=== PATIENT | male | born 1955 | race Caucasian/White ===

== ENCOUNTER → 2016-12-17 | Outpatient (CLI) | payer BC ==
--- NOTE | 2016-12-17 11:15 | NM ---
EXAMINATION: Nuclear medicine myocardial perfusion study with exercise stress test. HISTORY: Chest pain. PROCEDURE: Patient exercised according to Feliciano protocol for 10 minutes and 16 seconds and achieved maximal hea rt rate of 146 beats per minute. Adequate exercise. Following intravenous administration of 9.9 and 31.0 mCi of technetium 99m sestamibi, stress and r est SPECT images including gating imaging was performed. FINDINGS: Stress and rest myocardial SPECT images demonstrates mildly decreased perfusion along the inferior w all, fixed. Review of gated images demonstrates normal wall motion, contractility and wall thickening. The left ventricular ejection fraction is 59 %. The left ventricular chamber size is normal. IMPRESSION: 1. No evidence of myocardial ischemia. 2. Normal ventricular chamber size and function with ejection fraction of 59 %.
--- NOTE | 2016-12-17 15:29 | PCM.PRNOTE ---
- Free Text/Narrative Note: Procedure: Cardiolite exercise stress test Resting blood pressure 122/82, pulse 68 Patient exercised per Feliciano protocol 10 minutes and 16 seconds and achieved a maximum heart rate of 146 beats per minute which was 91% of age-predicted maximum heart rate. Mets: 12.8 double product 57097 Resting EKG revealed normal sinus rhythm. With exertion, no significant ST-T changes were noted. Test stopped at target heart rate. No complaints of chest pain during exercise or recovery with an unremarkable recovery phase. Impression: #1. Negative stress test for ischemic ST-T changes. #2. Good exercise tolerance. #3. Cardiolite portion of test pending
== END ==
LOC: MW.NM 06:13
PROVIDERS: ATTEND Emergency Medicine
DX: R07.9 Chest pain, unspecified (principal)
CPT/HCPCS: 78452; 78452-26; 93017; A9500

== ENCOUNTER 2019-03-26 20:36 | Emergency (ER) | payer BC ==
[2019-03-26] MEDS ORDERED: Sodium Chloride 0.9% 1,000 ML IV ONE (20:37)
[2019-03-26] MEDS ORDERED: Sodium Chloride 0.9% 2.5 ML Syringe FLUSH PRN (20:37)
[2019-03-26] MEDS ORDERED: Sodium Chloride 0.9% 10 ML Syringe FLUSH PRN (20:37)
[2019-03-26] MEDS ORDERED: Nitroglycerin 2% Oint 1 GM UD Packet TOP ONE (20:43)
--- NOTE | 2019-03-26 20:47 | EDM.PDOC ---
ED HPI GENERAL MEDICAL PROBLEM - General Chief Complaint: Chest Pain Stated Complaint: CHEST PAIN Time Seen by Provider: 03/26/19 20:43 Source of Information: Reports: Patient History Limitations: Reports: No Limitations - History of Present Illness INITIAL COMMENTS - FREE TEXT/NARRATIVE: HISTORY AND PHYSICAL: History of present illness: Patient is a 63-year-old male presents to the ED with complaint of chest pain. He reports pain started about 2pm this afternoon. He has taken 6 aspirin today, pain is currently a 2/10. He states it comes and goes in severity but always there, pain radiates up to his shoulders and has felt it in his jaw. He denies associated SOB, nausea, diaphoresis. He states he did have a coughing fit today , denies fevers, chills, vomiting, diarrhea, abdominal pain. Past medical history significant for hypertension and hyperlipidemia. Review of systems: As per history of present illness and below otherwise all systems reviewed and negative. Past medical history: As per history of present illness and as reviewed below otherwise noncontributory. Surgical history: As per history of present illness and as reviewed below otherwise noncontributory. Social history: No reported history of drug or alcohol abuse. Family history: As per history of present illness and as reviewed below otherwise noncontributory. Physical exam: General: Patient sitting comfortably in no acute distress and nontoxic appearing HEENT: Atraumatic, normocephalic, pupils reactive, negative for conjunctival pallor or scleral icterus, mucous membranes moist, throat clear, neck supple, nontender, trachea midline. No meningeal signs. Lungs: Clear to auscultation, breath sounds equal bilaterally, chest nontender. Heart: S1S2, regular, negative for clicks, rubs, or overt murmur. Abdomen: Soft, nondistended, nontender. Negative for masses or hepatosplenomegaly. Negative for costovertebral tenderness. No rigidity, rebound , guarding. Pelvis: Stable nontender. Genitourinary: Deferred. Rectal: Deferred. Extremities: Atraumatic, negative for cords or calf pain. Neurovascular unremarkable. Neuro: Awake, alert, oriented. Cranial nerves II through XII unremarkable. Cerebellum unremarkable. Motor and sensory unremarkable throughout. Exam nonfocal. Notes: Patient has not taken sildenafil in 48 hours. Diagnostics: CBC, CMP, troponin, PT/INR, EKG, CXR Therapeutics: 1L NS IV 1/2 nitro paste Prescriptions: Impression: Unstable angina Plan: Discussed with Dr. Chris, [facility] ED, patient will be transferred via ground ambulance. Definitive disposition and diagnosis as appropriate pending reevaluation and review of above. Middle Chest Pain Score (Numeric/FACES): 10 - Related Data Allergies Allergy/AdvReac Type Severity Reaction Status Date / Time atorvastatin calcium Allergy Other Verified 03/26/19 20:47 [From Lipitor] ezetimibe [From Zetia] Allergy Other Verified 03/26/19 20:47 Home Meds: Home Meds Desvenlafaxine Succinate [Desvenlafaxine Succinate ER] 100 mg PO DAILY 03/26/19 [History] Losartan Potassium 100 mg PO DAILY 03/26/19 [History] Pravastatin Sodium 10 mg PO DAILY 03/26/19 [History] Sildenafil Citrate 20 mg PO ASDIRECTED 03/26/19 [History] ED ROS GENERAL - Review of Systems Review Of Systems: ROS reveals no pertinent complaints other than HPI. ED EXAM, GENERAL - Physical Exam Exam: See Below (see dictation) Course - Vital Signs Last Recorded V/S: Last Vital Signs Temp 96.3 F 03/26/19 20:38 Pulse 71 03/26/19 20:38 Resp BP 182/102 H 03/26/19 20:38 Pulse Ox 96 03/26/19 20:38 - Orders/Labs/Meds Orders: Active Orders 24 hr Category Date Time Status Cardiac Monitoring [RC] . DIRECTED Care 03/26/19 20:37 Active EKG Documentation Completion [RC] STAT Care 03/26/19 20:38 Active Sodium Chloride 0.9% [Saline Flush] Med 03/26/19 20:37 Active 10 ml FLUSH ASDIRECTED PRN Sodium Chloride 0.9% [Saline Flush] Med 03/26/19 20:37 Active 2.5 ml FLUSH ASDIRECTED PRN Saline Lock Insert [OM.PC] Stat Oth 03/26/19 20:37 Ordered Medication Orders Sodium Chloride (Saline Flush) 10 ml FLUSH ASDIRECTED PRN PRN Reason: Keep Vein Open Sodium Chloride (Saline Flush) 2.5 ml FLUSH ASDIRECTED PRN PRN Reason: Keep Vein Open Labs: Laboratory Tests 03/26/19 03/26/19 03/26/19 Range/Units 20:45 20:45 20:45 WBC 7.33 (4.0-11.0) K/uL RBC 4.73 (4.50-5.90) M/uL Hgb 15.3 (13.0-17.0) g/dL Hct 44.8 (38.0-50.0) % MCV 94.7 (80.0-98.0) fL MCH 32.3 H (27.0-32.0) pg MCHC 34.2 (31.0-37.0) g/dL RDW Std Deviation 41.0 (28.0-62.0) fl RDW Coeff of Nicky 12 (11.0-15.0) % Plt Count 192 (150-400) K/uL MPV 10.00 (7.40-12.00) fL Neut % (Auto) 60.7 (48.0-80.0) % Lymph % (Auto) 27.3 (16.0-40.0) % [place] % (Auto) 7.9 (0.0-15.0) % Eos % (Auto) 3.7 (0.0-7.0) % Baso % (Auto) 0.4 (0.0-1.5) % Neut # (Auto) 4.5 (1.4-5.7) K/uL Lymph # (Auto) 2.0 (0.6-2.4) K/uL [place] # (Auto) 0.6 (0.0-0.8) K/uL Eos # (Auto) 0.3 (0.0-0.7) K/uL Baso # (Auto) 0.0 (0.0-0.1) K/uL Nucleated RBC % 0.0 /100WBC Nucleated RBCs # 0 K/uL INR 0.95 Sodium 144 (136-148) mmol/L Potassium 3.7 (3.5-5.1) mmol/L Chloride 107 (98-107) mmol/L Carbon Dioxide 25.4 (21.0-32.0) mmol/L BUN 19 H (7.0-18.0) mg/dL Creatinine 1.2 (0.8-1.3) mg/dL Est Cr Clr Drug Dosing 65.90 mL/min Estimated GFR (MDRD) > 60.0 ml/min Glucose 132 H (74-106) mg/dL Calcium 9.4 (8.5-10.1) mg/dL Total Bilirubin 0.3 (0.2-1.0) mg/dL AST 25 (15-37) IU/L ALT 43 (14-63) IU/L Alkaline Phosphatase 94 (46-116) U/L Troponin I 0.739 H* (0.000-0.056) ng/mL Total Protein 6.6 (6.4-8.2) g/dL Albumin 3.5 (3.4-5.0) g/dL Globulin 3.1 (2.6-4.0) g/dL Albumin/Globulin Ratio 1.1 (0.9-1.6) Urine Color Urine Appearance Urine pH (5.0-8.0) Ur Specific [place] (1.001-1.035) Urine Protein (NEGATIVE) mg/dL Urine Glucose (UA) (NEGATIVE) mg/dL Urine Ketones (NEGATIVE) mg/dL Urine Occult Blood (NEGATIVE) Urine Nitrite (NEGATIVE) Urine Bilirubin (NEGATIVE) Urine Urobilinogen (<2.0) EU/dL Ur Leukocyte Esterase (NEGATIVE) 03/26/19 Range/Units 20:55 WBC (4.0-11.0) K/uL RBC (4.50-5.90) M/uL Hgb (13.0-17.0) g/dL Hct (38.0-50.0) % MCV (80.0-98.0) fL MCH (27.0-32.0) pg MCHC (31.0-37.0) g/dL RDW Std Deviation (28.0-62.0) fl RDW Coeff of Nicky (11.0-15.0) % Plt Count (150-400) K/uL MPV (7.40-12.00) fL Neut % (Auto) (48.0-80.0) % Lymph % (Auto) (16.0-40.0) % [place] % (Auto) (0.0-15.0) % Eos % (Auto) (0.0-7.0) % Baso % (Auto) (0.0-1.5) % Neut # (Auto) (1.4-5.7) K/uL Lymph # (Auto) (0.6-2.4) K/uL [place] # (Auto) (0.0-0.8) K/uL Eos # (Auto) (0.0-0.7) K/uL Baso # (Auto) (0.0-0.1) K/uL Nucleated RBC % /100WBC Nucleated RBCs # K/uL INR Sodium (136-148) mmol/L Potassium (3.5-5.1) mmol/L Chloride (98-107) mmol/L Carbon Dioxide (21.0-32.0) mmol/L BUN (7.0-18.0) mg/dL Creatinine (0.8-1.3) mg/dL Est Cr Clr Drug Dosing mL/min Estimated GFR (MDRD) ml/min Glucose (74-106) mg/dL Calcium (8.5-10.1) mg/dL Total Bilirubin (0.2-1.0) mg/dL AST (15-37) IU/L ALT (14-63) IU/L Alkaline Phosphatase (46-116) U/L Troponin I (0.000-0.056) ng/mL Total Protein (6.4-8.2) g/dL Albumin (3.4-5.0) g/dL Globulin (2.6-4.0) g/dL Albumin/Globulin Ratio (0.9-1.6) Urine Color YELLOW Urine Appearance CLEAR Urine pH 6.5 (5.0-8.0) Ur Specific [place] <= 1.005 (1.001-1.035) Urine Protein NEGATIVE (NEGATIVE) mg/dL Urine Glucose (UA) NEGATIVE (NEGATIVE) mg/dL Urine Ketones NEGATIVE (NEGATIVE) mg/dL Urine Occult Blood NEGATIVE (NEGATIVE) Urine Nitrite NEGATIVE (NEGATIVE) Urine Bilirubin NEGATIVE (NEGATIVE) Urine Urobilinogen 0.2 (<2.0) EU/dL Ur Leukocyte Esterase NEGATIVE (NEGATIVE) Meds: Medications Generic Name Dose Route Start Last Admin Trade Name Freq PRN Reason Stop Dose Admin Sodium Chloride 10 ml 03/26/19 20:37 Saline Flush FLUSH ASDIRECTED PRN Keep Vein Open Sodium Chloride 2.5 ml 03/26/19 20:37 Saline Flush FLUSH ASDIRECTED PRN Keep Vein Open Discontinued Medications Generic Name Dose Route Start Last Admin Trade Name Freq PRN Reason Stop Dose Admin Sodium Chloride 1,000 mls @ 999 mls/hr 03/26/19 20:37 03/26/19 21:00 Normal Saline IV 03/26/19 21:37 999 mls/hr BOLUS ONE Administration Nitroglycerin 0.5 gm 03/26/19 20:43 03/26/19 20:59 Nitro-Bid 2% TOP 03/26/19 20:44 0.5 gm ONETIME ONE Administration Departure - Departure Time of Disposition: 21:49 Disposition: DC/Tfer to Acute Hospital 02 Reason for Transfer *Q: Primary PCI Indicated Condition: Good Clinical Impression: Unstable angina Referrals: PCP,None [Primary Care Provider] - Forms: ED Department Discharge - My Orders Last 24 Hours: My Active Orders 03/26/19 20:37 Cardiac Monitoring [RC] . DIRECTED Sodium Chloride 0.9% [Saline Flush] 10 ml FLUSH ASDIRECTED PRN Sodium Chloride 0.9% [Saline Flush] 2.5 ml FLUSH ASDIRECTED PRN Saline Lock Insert [OM.PC] Stat 03/26/19 20:38 EKG Documentation Completion [RC] STAT - Assessment/Plan Last 24 Hours: My Active Orders 03/26/19 20:37 Cardiac Monitoring [RC] . DIRECTED Sodium Chloride 0.9% [Saline Flush] 10 ml FLUSH ASDIRECTED PRN Sodium Chloride 0.9% [Saline Flush] 2.5 ml FLUSH ASDIRECTED PRN Saline Lock Insert [OM.PC] Stat 03/26/19 20:38 EKG Documentation Completion [RC] STAT
--- NOTE | 2019-03-26 21:19 | CR ---
INDICATION: chest pain TECHNIQUE: Chest 1 view. COMPARISON: None. FINDINGS: Cardiovascular and mediastinum: Heart size and vasculature are normal in caliber and appearance. Mediastinum is within normal limits. Lungs and pleural space: Lungs are clear. No sign of infiltrate or mass. No sign of pleural effusion. No pneumothorax. Bones and soft tissues: No significant findings. IMPRESSION: Unremarkable chest. Dictated by: Bennett Fernandez MD @ 03/26/2019 21:17:39 (Electronically Signed)
[2019-03-26 21:30] LABS: CHLORIDE,CL 107 mmol/L (98-107); SODIUM,NA 144 mmol/L (136-148)
[2019-03-26] MEDS ORDERED: Enoxaparin 100 MG/1 ML Syringe SUBCUT ONE (22:07)
== END 2019-03-27 00:20 ==
LOC: MW.ED 20:36
DX: I20.0 Unstable angina (principal); I10 Essential (primary) hypertension; E78.5 Hyperlipidemia, unspecified; Z88.8 Allergy status to other drugs, medicaments and biological substances; Z79.899 Other long term (current) drug therapy
CPT/HCPCS: 36415; 71045; 80053; 81003; 84484; 85025; 85610; 93005; 96360; 96372; 99285; A9270; J1650; J7040; 99284

== ENCOUNTER 2019-05-28 10:39 | Observation (INO) | payer BC ==
[2019-05-28] MEDS ORDERED: Sodium Chloride 0.9% 10 ML Syringe FLUSH PRN (10:40)
[2019-05-28] MEDS ORDERED: diphenhydrAMINE 50 MG/ML SDV IVPUSH ONE (10:40)
[2019-05-28] MEDS ORDERED: Sodium Chloride 0.9% 2.5 ML Syringe FLUSH PRN (10:40)
[2019-05-28] MEDS ORDERED: methylPREDNISolone Sodium Succinate 125 MG/2 ML SDV IVPUSH ONE (10:40)
[2019-05-28] MEDS ORDERED: Famotidine 20 MG/2 ML SDV IVPUSH ONE (10:40)
[2019-05-28] MEDS ORDERED: Sodium Chloride 0.9% 1,000 ML IV ONE (10:41)
--- NOTE | 2019-05-28 10:41 | EDM.PDOC ---
ED HPI GENERAL MEDICAL PROBLEM - General Chief Complaint: Allergic Reaction Stated Complaint: ALLERGIC REACTION Time Seen by Provider: 05/28/19 10:41 Source of Information: Reports: Patient History Limitations: Reports: No Limitations - History of Present Illness INITIAL COMMENTS - FREE TEXT/NARRATIVE: HISTORY AND PHYSICAL: History of present illness: Patient is a 63-year-old male presents to the ED with complaint of possible allergic reaction. He states he was seeing ortho this morning and had cortisone injections in both knees. He states shortly afterwards he developed itchy knees , shortness of breath and shaky. He denies oropharyngeal swelling, itching, or hoarse voice. He denies chest pain, nausea, vomiting, abdominal pain, diarrhea, fevers, chills, cough. History of HI 2 months ago with stent placement. Patient developed left sided chest pain with radiation to left jaw while in ED. 1 inch nitro paste placed, patient states pain resolved with this. Review of systems: As per history of present illness and below otherwise all systems reviewed and negative. Past medical history: As per history of present illness and as reviewed below otherwise noncontributory. Surgical history: As per history of present illness and as reviewed below otherwise noncontributory. Social history: No reported history of drug or alcohol abuse. Family history: As per history of present illness and as reviewed below otherwise noncontributory. Physical exam: General: Patient sitting comfortably in no acute distress and nontoxic appearing HEENT: Atraumatic, normocephalic, pupils reactive, negative for conjunctival pallor or scleral icterus, mucous membranes moist, throat clear, neck supple, nontender, trachea midline. No meningeal signs. Lungs: Clear to auscultation, breath sounds equal bilaterally, chest nontender. Heart: S1S2, regular, negative for clicks, rubs, or overt murmur. Abdomen: Soft, nondistended, nontender. Negative for masses or hepatosplenomegaly. Negative for costovertebral tenderness. No rigidity, rebound , guarding. Pelvis: Stable nontender. Genitourinary: Deferred. Rectal: Deferred. Extremities: Atraumatic, negative for cords or calf pain. Neurovascular unremarkable. Neuro: Awake, alert, oriented. Cranial nerves II through XII unremarkable. Cerebellum unremarkable. Motor and sensory unremarkable throughout. Exam nonfocal. Notes: Patient has not taken sildenafil in past 48 hours. Diagnostics: CBC, CMP, Troponin, EKG, CXR Therapeutics: 1L NS IV 125mg Solumedrol 25mg Benadryl 20mg Famotidine 1 inch Nitropaste Prescriptions: Impression: Allergic reaction, chest pain r/o ACS Plan: Discussed with Dr. Garcia, patient will be admitted to observation for chest pain r/o ACS Definitive disposition and diagnosis as appropriate pending reevaluation and review of above. - Related Data Allergies Allergy/AdvReac Type Severity Reaction Status Date / Time atorvastatin calcium Allergy Other Verified 05/28/19 10:47 [From Lipitor] ezetimibe [From Zetia] Allergy Other Verified 05/28/19 10:47 Home Meds: Home Meds Desvenlafaxine Succinate [Desvenlafaxine Succinate ER] 100 mg PO DAILY 03/26/19 [History] Losartan Potassium 100 mg PO DAILY 03/26/19 [History] Pravastatin Sodium 10 mg PO DAILY 03/26/19 [History] Sildenafil Citrate 20 mg PO ASDIRECTED 03/26/19 [History] Ticagrelor [Brilinta] 60 mg PO 05/28/19 [History] Past Medical History HEENT History: Reports: None Cardiovascular History: Reports: High Cholesterol, Hypertension Respiratory History: Reports: None Gastrointestinal History: Reports: None Genitourinary History: Reports: None Musculoskeletal History: Reports: None Neurological History: Reports: None Psychiatric History: Reports: Anxiety Endocrine/Metabolic History: Reports: None Hematologic History: Reports: None Immunologic History: Reports: None Oncologic (Cancer) History: Reports: None Dermatologic History: Reports: None - Infectious Disease History Infectious Disease History: Reports: Chicken Pox - Past Surgical History Head Surgeries/Procedures: Reports: None ED ROS ALLERGIC REACTION - Review of Systems Review Of Systems: ROS reveals no pertinent complaints other than HPI. ED EXAM GENERAL NO PERIP PULSE - Physical Exam Exam: See Below (see dictation) Course - Vital Signs Last Recorded V/S: Last Vital Signs Temp 96.3 F 05/28/19 11:24 Pulse 73 05/28/19 11:24 Resp 22 H 05/28/19 11:24 BP 155/99 H 05/28/19 11:24 Pulse Ox 100 05/28/19 11:24 - Orders/Labs/Meds Orders: Active Orders 24 hr Category Date Time Status EKG Documentation Completion [RC] STAT Care 05/28/19 10:46 Active Sodium Chloride 0.9% [Saline Flush] Med 05/28/19 10:40 Active 10 ml FLUSH ASDIRECTED PRN Sodium Chloride 0.9% [Saline Flush] Med 05/28/19 10:40 Active 2.5 ml FLUSH ASDIRECTED PRN Saline Lock Insert [OM.PC] Stat Oth 05/28/19 10:40 Ordered Medication Orders Sodium Chloride (Saline Flush) 10 ml FLUSH ASDIRECTED PRN PRN Reason: Keep Vein Open Sodium Chloride (Saline Flush) 2.5 ml FLUSH ASDIRECTED PRN PRN Reason: Keep Vein Open Labs: Laboratory Tests 05/28/19 05/28/19 Range/Units 10:50 10:50 WBC 5.11 (4.0-11.0) K/uL RBC 5.09 (4.50-5.90) M/uL Hgb 16.1 (13.0-17.0) g/dL Hct 47.0 (38.0-50.0) % MCV 92.3 (80.0-98.0) fL MCH 31.6 (27.0-32.0) pg MCHC 34.3 (31.0-37.0) g/dL RDW Std Deviation 41.5 (28.0-62.0) fl RDW Coeff of Nicky 12 (11.0-15.0) % Plt Count 199 (150-400) K/uL MPV 9.70 (7.40-12.00) fL Add Manual Diff YES Neutrophils % (Manual) 53 (48.0-80.0) % Band Neutrophils % 5 % Lymphocytes % (Manual) 38 (16.0-40.0) % Monocytes % (Manual) 2 (0.0-15.0) % Basophils % (Manual) 1 (0.0-1.5) % Metamyelocytes % 1 % Nucleated RBC % 0.0 /100WBC Absolute Seg Neuts 2.7 (1.4-5.7) Band Neutrophils # 0.3 Lymphocytes # (Manual) 1.9 (0.6-2.4) Monocytes # (Manual) 0.1 (0.0-0.8) Basophils # (Manual) 0.1 (0.0-0.1) Absolute Metamyelocyte 0.1 Nucleated RBCs # 0 K/uL Sodium 142 (136-148) mmol/L Potassium 4.2 (3.5-5.1) mmol/L Chloride 107 (98-107) mmol/L Carbon Dioxide 22.3 (21.0-32.0) mmol/L BUN 11 (7.0-18.0) mg/dL Creatinine 1.1 (0.8-1.3) mg/dL Est Cr Clr Drug Dosing 71.89 mL/min Estimated GFR (MDRD) > 60.0 ml/min Glucose 124 H (74-106) mg/dL Calcium 9.2 (8.5-10.1) mg/dL Total Bilirubin 0.6 (0.2-1.0) mg/dL AST 22 (15-37) IU/L ALT 34 (14-63) IU/L Alkaline Phosphatase 106 (46-116) U/L Troponin I < 0.050 (0.000-0.056) ng/mL Total Protein 7.4 (6.4-8.2) g/dL Albumin 3.9 (3.4-5.0) g/dL Globulin 3.5 (2.6-4.0) g/dL Albumin/Globulin Ratio 1.1 (0.9-1.6) Meds: Medications Generic Name Dose Route Start Last Admin Trade Name Yani PRN Reason Stop Dose Admin Sodium Chloride 10 ml 05/28/19 10:40 Saline Flush FLUSH ASDIRECTED PRN Keep Vein Open Sodium Chloride 2.5 ml 05/28/19 10:40 Saline Flush FLUSH ASDIRECTED PRN Keep Vein Open Discontinued Medications Generic Name Dose Route Start Last Admin Trade Name Yani PRN Reason Stop Dose Admin Diphenhydramine HCl 25 mg 05/28/19 10:40 05/28/19 11:02 Benadryl IVPUSH 05/28/19 10:41 25 mg ONETIME ONE Administration Famotidine 20 mg 05/28/19 10:40 05/28/19 11:23 Pepcid IVPUSH 05/28/19 10:41 20 mg ONETIME ONE Administration Sodium Chloride 1,000 mls @ 999 mls/hr 05/28/19 10:41 05/28/19 11:00 Normal Saline IV 05/28/19 11:41 999 mls/hr STAT ONE Administration Methylprednisolone Sodium Succinate 125 mg 10/18/19 10:40 05/28/19 11:04 Solu-Medrol IVPUSH 05/28/19 10:41 125 mg ONETIME ONE Administration Nitroglycerin 0.5 gm 05/28/19 11:12 05/28/19 11:23 Nitro-Bid 2% TOP 05/28/19 11:13 Not Given ONETIME ONE Nitroglycerin 1 gm 05/28/19 11:18 05/28/19 11:23 Nitro-Bid 2% TOP 05/28/19 11:19 1 gm ONETIME ONE Administration Departure - Departure Time of Disposition: 12:00 Disposition: Home, Self-Care 01 Condition: Good Clinical Impression: Chest pain, Allergic reaction - Discharge Information Referrals: Adin Carlisle MD [Primary Care Provider] - - My Orders Last 24 Hours: My Active Orders 05/28/19 10:40 Sodium Chloride 0.9% [Saline Flush] 10 ml FLUSH ASDIRECTED PRN Sodium Chloride 0.9% [Saline Flush] 2.5 ml FLUSH ASDIRECTED PRN Saline Lock Insert [OM.PC] Stat 05/28/19 10:46 EKG Documentation Completion [RC] STAT - Assessment/Plan Last 24 Hours: My Active Orders 05/28/19 10:40 Sodium Chloride 0.9% [Saline Flush] 10 ml FLUSH ASDIRECTED PRN Sodium Chloride 0.9% [Saline Flush] 2.5 ml FLUSH ASDIRECTED PRN Saline Lock Insert [OM.PC] Stat 05/28/19 10:46 EKG Documentation Completion [RC] STAT
[2019-05-28] MEDS ORDERED: Nitroglycerin 2% Oint 1 GM UD Packet TOP ONE ×2 (11:12→11:18)
--- NOTE | 2019-05-28 11:29 | CR ---
Chest: Portable view of the chest was obtained. Comparison: Prior chest x-ray of 03/26/19. Heart size and mediastinum are normal. Lungs are clear. Bony structures are unremarkable. Impression: Nothing acute is seen on portable chest x-ray. Diagnostic code #1 MTDD
[2019-05-28 11:35] LABS: BLOOD UREA NITROGEN,BUN 11 mg/dL (7.0-18.0); CARBON DIOXIDE,CO2 22.3 mmol/L (21.0-32.0); CHLORIDE,CL 107 mmol/L (98-107); GLUCOSE RANDOM 124 mg/dL (74-106); POTASSIUM,K 4.2 mmol/L (3.5-5.1); SODIUM,NA 142 mmol/L (136-148)
[2019-05-28] MEDS ORDERED: Ondansetron 4 MG/2 ML SDV IVPUSH PRN (12:37)
[2019-05-28] MEDS ORDERED: Acetaminophen 325 MG Tab PO PRN (12:37)
[2019-05-28] MEDS ORDERED: Albuterol/Ipratropium 3.0-0.5 MG/3 ML Neb Soln NEB PRN (12:37)
[2019-05-28] MEDS ORDERED: Aspirin 325 MG Tab PO ONE (12:40)
--- NOTE | 2019-05-28 12:41 | PCM.HP.2 ---
H&P History of Present Illness - General Date of Service: 05/28/19 Admit Problem/Dx: Admission Diagnosis/Problem Admission Diagnosis/Problem Chest pain Source of Information: Patient History Limitations: Reports: No Limitations - History of Present Illness Initial Comments - Free Text/Narative: This 63 year old male with pmh of recent IA with stenting 2 months ago, HTN, dyslipidemia, and anxiety presented to the ED today after receiving injections to bilateral knees for osteoarthritis. He reports he felt fine after the injection, he was walking out to his car and started having significant itching to both knees and feeling very weak all over. he saw hives located on his knees and also noted sone flushing on his neck and face. In the ED he reported experience some fullness in his throat. He also started having L mid sternal chest pain which radiated to his jaw and slightly to his L arm. He reports it was similar to when he had his IA. He reports up to the time of injection, he was feeling well no concerns. He currently is chest pain free. Reports running itchy nose with watery eyes. No numbness or tingling to his oral cavity or lips. He feels his face is somewhat puffy. His daughter confirms his face does appear puffy compared to his normal. He denies smoking history, uses alcohol on the weekends, no recreational drug use. In the ED labwork WNL. Troponin negative. He was treated with Solu-medrol, Pepcid and Benadryl. EKG revealed initially mild ST elevated in all leads, repeated EKG WNL, no real change from Previous EKG from clinic. VS stable, no hypotension noted. Nitro past was placed with chest pain, which alleviated this. He will be admitted for allergic reaction and chest pain rule out. I spoke with Elizabeth Jama NP in Ortho. She was notified of reaction and reported his injections included, Depomedrol, Bupivacaine, and 1% lidocaine. - Related Data Allergies/Adverse Reactions: Allergies Allergy/AdvReac Type Severity Reaction Status Date / Time atorvastatin calcium Allergy Other Verified 05/28/19 13:29 [From Lipitor] ezetimibe [From Zetia] Allergy Other Verified 05/28/19 13:32 Home Medications: Home Meds Desvenlafaxine Succinate [Desvenlafaxine Succinate ER] 100 mg PO DAILY 03/26/19 [History] Losartan Potassium 100 mg PO DAILY 03/26/19 [History] Pravastatin Sodium 10 mg PO DAILY 03/26/19 [History] Sildenafil Citrate 20 mg PO ASDIRECTED 03/26/19 [History] Ticagrelor [Brilinta] 60 mg PO 05/28/19 [History] Past Medical History HEENT History: Reports: None Cardiovascular History: Reports: CAD, High Cholesterol, Hypertension, [place], Stents (March 27, 2019) Respiratory History: Reports: None. Denies: Asthma, COPD Gastrointestinal History: Reports: GERD Genitourinary History: Reports: None Musculoskeletal History: Reports: None Neurological History: Reports: None. Denies: CVA, TIA Psychiatric History: Reports: Anxiety Endocrine/Metabolic History: Reports: None. Denies: Diabetes, Type II, Hypothyroidism Hematologic History: Reports: None Immunologic History: Reports: None Oncologic (Cancer) History: Reports: None Dermatologic History: Reports: None - Infectious Disease History Infectious Disease History: Reports: Chicken Pox - Past Surgical History Head Surgeries/Procedures: Reports: None Social & Family History - Family History Family Medical History: Noncontributory - Tobacco Use Smoking Status *Q: Never Smoker - Caffeine Use Caffeine Use: Reports: None - Alcohol Use Days Per Week of Alcohol Use: 2 Number of Drinks Per Day: 4 Total Drinks Per Week: 8 Alcohol Use Frequency: Binges (weekends, 5-6 beers) - Recreational Drug Use Recreational Drug Use: No - Living Situation & Occupation Living situation: Reports: Occupation: Employed H&P Review of Systems - Review of Systems: Review Of Systems: See Below General: Reports: No Symptoms. Denies: Fever, Chills, Malaise HEENT: Reports: Rhinitis, Other (watery eyes). Denies: Sore Throat, Vertigo, Visual Changes Pulmonary: Reports: No Symptoms. Denies: Shortness of Breath, Wheezing, Cough, Sputum Cardiovascular: Reports: No Symptoms. Denies: Chest Pain (no longer having chest pain), Dyspnea on Exertion, Lightheadedness Gastrointestinal: Reports: No Symptoms. Denies: Abdominal Pain, Black Stool, Bloody Stool, Nausea, Vomiting Genitourinary: Reports: No Symptoms. Denies: Dysuria, Frequency, Burning Skin: Reports: No Symptoms. Denies: Pruritis, Rash, Urticaria Neurological: Reports: No Symptoms Hematologic/Lymphatic: Reports: No Symptoms Immunologic: Reports: Anaphylaxis (improved since arriving to ED) Exam - Exam Exam: See Below - Vital Signs Vital Signs: Last Vital Signs Temp 96.3 F 05/28/19 11:24 Pulse 73 05/28/19 11:51 Resp 16 05/28/19 11:51 BP 121/85 05/28/19 11:51 Pulse Ox 96 05/28/19 11:51 Weight: 83.915 kg - Exam Quality Assessment: DVT Prophylaxis. No: Supplemental Oxygen General: Alert, Oriented, Cooperative HEENT: Conjunctiva Clear, EACs Clear, Mucosa Moist & [place], Posterior Pharynx Clear, Rhinitis (itching nose), Other (face is puffy. Denies tinging to lips or tongue fullness. Flushing to neck and cheeks), PERRLA (watering eyes) Neck: Supple, Trachea Midline, Full Range of Motion. No: JVD Lungs: Clear to Auscultation, Normal Respiratory Effort. No: Stridor, Wheezing Cardiovascular: Regular Rate, Regular Rhythm, Normal S1, Normal S2. No: Tachycardia, Systolic Murmur GI/Abdominal Exam: Normal Bowel Sounds, Soft, Non-Tender Extremities: Normal Inspection, Normal Range of Motion, Non-Tender, No Pedal Edema Skin: Wound (injection sites to lateral bilateral knees clear. No erythema, no urticaria noted. ) - Patient Data Lab Results Last 24 hrs: Laboratory Results - last 24 hr 05/28/19 05/28/19 Range/Units 10:50 10:50 WBC 5.11 (4.0-11.0) K/uL RBC 5.09 (4.50-5.90) M/uL Hgb 16.1 (13.0-17.0) g/dL Hct 47.0 (38.0-50.0) % MCV 92.3 (80.0-98.0) fL MCH 31.6 (27.0-32.0) pg MCHC 34.3 (31.0-37.0) g/dL RDW Std Deviation 41.5 (28.0-62.0) fl RDW Coeff of Nicky 12 (11.0-15.0) % Plt Count 199 (150-400) K/uL MPV 9.70 (7.40-12.00) fL Add Manual Diff YES Neutrophils % (Manual) 53 (48.0-80.0) % Band Neutrophils % 5 % Lymphocytes % (Manual) 38 (16.0-40.0) % Monocytes % (Manual) 2 (0.0-15.0) % Basophils % (Manual) 1 (0.0-1.5) % Metamyelocytes % 1 % Nucleated RBC % 0.0 /100WBC Absolute Seg Neuts 2.7 (1.4-5.7) Band Neutrophils # 0.3 Lymphocytes # (Manual) 1.9 (0.6-2.4) Monocytes # (Manual) 0.1 (0.0-0.8) Basophils # (Manual) 0.1 (0.0-0.1) Absolute Metamyelocyte 0.1 Nucleated RBCs # 0 K/uL Sodium 142 (136-148) mmol/L Potassium 4.2 (3.5-5.1) mmol/L Chloride 107 (98-107) mmol/L Carbon Dioxide 22.3 (21.0-32.0) mmol/L BUN 11 (7.0-18.0) mg/dL Creatinine 1.1 (0.8-1.3) mg/dL Est Cr Clr Drug Dosing 71.89 mL/min Estimated GFR (MDRD) > 60.0 ml/min Glucose 124 H (74-106) mg/dL Calcium 9.2 (8.5-10.1) mg/dL Total Bilirubin 0.6 (0.2-1.0) mg/dL AST 22 (15-37) IU/L ALT 34 (14-63) IU/L Alkaline Phosphatase 106 (46-116) U/L Troponin I < 0.050 (0.000-0.056) ng/mL Total Protein 7.4 (6.4-8.2) g/dL Albumin 3.9 (3.4-5.0) g/dL Globulin 3.5 (2.6-4.0) g/dL Albumin/Globulin Ratio 1.1 (0.9-1.6) Result Diagrams: 05/28/19 10:50 05/28/19 10:50 EKG INTERPRETATION EKG Date: 05/28/19 Rhythm: NSR Rate (Beats/Min): 70 [place]: Normal QRS: Normal ST-T: Elevated (repeat EKG no ST elevation noted) Comparison: No Change - Problem List (1) Allergic reaction SNOMED Code(s): 469061539 ICD Code: T78.40XA - ALLERGY, UNSPECIFIED, INITIAL ENCOUNTER Status: Acute Current Visit: Yes Qualifiers: Encounter type: initial encounter Qualified Code(s): T78.40XA - Allergy, unspecified, initial encounter (2) Chest pain SNOMED Code(s): 77507591 ICD Code: R07.9 - CHEST PAIN, UNSPECIFIED Status: Acute Current Visit: Yes (3) HTN (hypertension) SNOMED Code(s): 48071140 ICD Code: I10 - ESSENTIAL (PRIMARY) HYPERTENSION Status: Chronic Current Visit: Yes (4) CAD (coronary artery disease) SNOMED Code(s): 35461310 ICD Code: I25.10 - ATHSCL HEART DISEASE OF [place] CORONARY ARTERY W/O ANG PCTRS Status: Chronic Current Visit: Yes Qualifiers: Coronary Disease-Associated Artery/Lesion type: [place] artery [place] vs. transplanted heart: [place] heart Associated angina: without angina Qualified Code(s): I25.10 - Atherosclerotic heart disease of [place] coronary artery without angina pectoris (5) Hx of myocardial infarction SNOMED Code(s): 813140141 ICD Code: I25.2 - OLD MYOCARDIAL INFARCTION Status: Chronic Current Visit : Yes (6) History of coronary artery stent placement SNOMED Code(s): 761541463, 471441993 ICD Code: Z95.5 - PRESENCE OF CORONARY ANGIOPLASTY IMPLANT AND GRAFT Status : Chronic Current Visit: Yes (7) Anxiety SNOMED Code(s): 29742204 ICD Code: F41.9 - ANXIETY DISORDER, UNSPECIFIED Status: Chronic Current Visit: Yes Problem List Initiated/Reviewed/Updated: Yes Orders Last 24hrs: Active Orders 24 hr Category Date Time Status Admission Status [Patient Status] [ADT] Stat ADT 05/28/19 12:01 Active Intake and Output [RC] QSHIFT Care 05/28/19 12:38 Active Oxygen Therapy [RC] PRN Care 05/28/19 12:37 Active RT Aerosol Therapy [RC] ASDIRECTED Care 05/28/19 12:38 Active Telemetry Monitoring [Cardiac Monitoring] [RC] . Care 05/28/19 12:37 Active DIRECTED Up ad Emily [RC] ASDIRECTED Care 05/28/19 12:37 Active VTE/DVT Education [RC] PER UNIT ROUTINE Care 05/28/19 12:37 Active Vital Signs [RC] Q4H Care 05/28/19 12:37 Active Heart Healthy Diet [DIET] Diet 05/28/19 Lunch Active TROPONIN I [CHEM] Q6H Lab 05/28/19 16:00 Ordered TROPONIN I [CHEM] Q6H Lab 05/28/19 22:00 Ordered Acetaminophen [Tylenol] Med 05/28/19 12:37 Ordered 650 mg PO Q4H PRN Albuterol/Ipratropium [DuoNeb 3.0-0.5 MG/3 ML] Med 05/28/19 12:37 Ordered 3 ml NEB Q4HRRT PRN Aspirin Med 05/28/19 12:40 Once 325 mg PO ONETIME ONE Ondansetron [Zofran] Med 05/28/19 12:37 Ordered 4 mg IVPUSH Q4H PRN Sodium Chloride 0.9% [Saline Flush] Med 05/28/19 10:40 Active 10 ml FLUSH ASDIRECTED PRN Sodium Chloride 0.9% [Saline Flush] Med 05/28/19 10:40 Active 2.5 ml FLUSH ASDIRECTED PRN Saline Lock Insert [OM.PC] Stat Oth 05/28/19 10:40 Ordered Resuscitation Status Routine Resus Stat 05/28/19 12:37 Ordered Medication Orders Acetaminophen (Tylenol) 650 mg PO Q4H PRN PRN Reason: Pain (mild 1-3) Albuterol/Ipratropium (Duoneb 3.0-0.5 Mg/3 Ml) 3 ml NEB Q4HRRT PRN PRN Reason: Shortness Of Breath/wheezing Aspirin (Aspirin) 325 mg PO ONETIME ONE Stop: 05/28/19 12:41 Ondansetron HCl (Zofran) 4 mg IVPUSH Q4H PRN PRN Reason: Nausea Sodium Chloride (Saline Flush) 10 ml FLUSH ASDIRECTED PRN PRN Reason: Keep Vein Open Sodium Chloride (Saline Flush) 2.5 ml FLUSH ASDIRECTED PRN PRN Reason: Keep Vein Open Assessment/Plan Comment:: This 63 year old male admitted with allergic reaction and Chest pain 1. Allergic reaction: Suspect from knee injections. Spoke with provider, she is aware. Will continue Benadryl PRN. Add Loratidine. Solumedrol 80 mg TID IV. Monitor on continuous pulse ox. Feeling improved now, besides rhinitis. Educated on biphasic reaction and to notify nursing immediately if symptoms started to return. 2. Chest pain: Initial troponin negative. Monitor on telemetry. Trend troponins. Follow up with cardiology as outpatient will be needed. 3. CAD: Continue Medications, Losartan, Brillinta, statin. 4. Anxiety: Stable. Continue home meds. VTE prophylaxis: SCDs Dispo: 1 day - Mortality Measure Prognosis:: Good
[2019-05-28] MEDS ORDERED: diphenhydrAMINE 50 MG/ML SDV IVPUSH PRN (14:06)
[2019-05-28] MEDS: Loratadine 10 MG Tab PO SCH (15:10)
[2019-05-28] MEDS: methylPREDNISolone Sodium Succinate 40 MG/1 ML SDV IVPUSH SCH ×2 (15:15→21:49)
[2019-05-28] MEDS: Fluticasone Propionate Nasal Spray 16 GM Bottle NASBOTH SCH (16:34)
[2019-05-28] MEDS ORDERED: PRAVASTATIN SODIUM 10 MG PO SCH (21:00)
[2019-05-29] MEDS: methylPREDNISolone Sodium Succinate 40 MG/1 ML SDV IVPUSH SCH (06:20)
--- NOTE | 2019-05-29 07:56 | PCM.DCSUM1 ---
Discharge Summary - Hospital Course HPI Initial Comments: The patient was admitted secondary to atypical chest pain. Diagnosis: Stroke: No - Discharge Data Discharge Date: 05/29/19 Discharge Disposition: Home, Self-Care 01 Condition: Fair - Referral to Home Health Primary Care Physician: Adin Carlisle MD - Patient Summary/Data Hospital Course: The patient is a 63-year-old gentleman who was admitted to acute hospitalization on May 28, 2019 secondary to chest pain. The patient's history is complicated by the fact that he had a recent [place] with coronary artery stenting approximately 2 months ago. He has a history of hypertension and dyslipidemia. Patient is also anxious. Been admitted to observation and was noted that his initial troponin was negative. The patient also had a CBC which was normal. His basic metabolic panel was also within normal limits. The patient was kept in hospitalization on telemetry he was kept on a heart healthy diet. He had 3 sets of troponins which were essentially undetectable. The patient's total cholesterol was noted to be at 120 mg/dL. By day of discharge the patient's pain had resolved. He was completely asymptomatic. The patient was also discharged on methylprednisolone Dosepak as he had been treated with steroids during hospitalization. The patient also felt that he could safely go home. The patient had been recommended to continue with his appropriate diet as tolerated. He is also to have activity as tolerated. The patient had been hemodynamically stable. Telemetry did not show any incidences. He has been discharged from acute hospitalization with recommendations listed above. - Patient Instructions Diet: Heart Healthy Diet Activity: As Tolerated - Discharge Plan *PRESCRIPTION DRUG MONITORING PROGRAM REVIEWED*: No *COPY OF PRESCRIPTION DRUG MONITORING REPORT IN PATIENT GORGE: No Prescriptions/Med Rec: methylPREDNISolone [Medrol] 4 mg PO ASDIRECTED #1 tab.ds.pk Home Medications: Home Meds Desvenlafaxine Succinate [Desvenlafaxine Succinate ER] 100 mg PO DAILY 03/26/19 [History] Losartan Potassium 100 mg PO DAILY 03/26/19 [History] Pravastatin Sodium 10 mg PO BEDTIME 03/26/19 [History] Sildenafil Citrate 1 - 2 tab PO ASDIRECTED 03/26/19 [History] ALPRAZolam [Alprazolam] 0.5 - 1 mg PO DAILY PRN 05/28/19 [History] Aspirin 81 mg PO DAILY 05/28/19 [History] Diclofenac Sodium [Voltaren] 50 mg PO DAILY 10/18/19 [History] Multivit with Iron,Minerals [Spectravite Senior] 1 tab PO DAILY 05/28/19 [ History] Pravastatin Sodium 10 mg PO BEDTIME 05/28/19 [History] Ticagrelor [Brilinta] 60 mg PO DAILY 05/28/19 [History] Vitamin B Complex [Ultra B-100 Complex] 100 mg PO DAILY 05/28/19 [History] methylPREDNISolone [Medrol] 4 mg PO ASDIRECTED #1 tab.ds.pk 05/29/19 [Rx] Patient Handouts: Nonspecific Chest Pain, [id number], Anaphylactic Reaction, Adult, [id number], Methylprednisolone tablets Referrals: Adin Carlisle MD [Primary Care Provider] - (Call Friday to make a follow-up appointment. This was not able to be made, due to it being the weekend. ) - Discharge Summary/Plan Comment DC Time >30 min.: Yes - General Info Date of Service: 05/29/19 Admission Dx/Problem (Free Text: Admission Diagnosis/Problem Admission Diagnosis/Problem Chest pain, atypical, allergic reaction to joint injection Subjective Update: Doing well. The patient feels like he can go home. Functional Status: Reports: Pain Controlled - Review of Systems General: Reports: No Symptoms HEENT: Reports: No Symptoms Pulmonary: Reports: No Symptoms Cardiovascular: Reports: No Symptoms Gastrointestinal: Reports: No Symptoms Genitourinary: Reports: No Symptoms Musculoskeletal: Reports: No Symptoms Skin: Reports: No Symptoms Neurological: Reports: No Symptoms Psychiatric: Reports: No Symptoms - Patient Data Vitals - Most Recent: Last Vital Signs Temp 36.4 C 05/29/19 07:49 Pulse 84 05/29/19 07:49 Resp 16 05/29/19 07:49 BP 136/78 05/29/19 07:49 Pulse Ox 93 L 05/29/19 07:49 Weight - Most Recent: 83.915 kg I&O - Last 24 hours: Intake & Output 05/28/19 05/29/19 05/29/19 22:59 06:59 14:59 Intake Total 400 Balance 400 Lab Results - Last 24 hrs: Laboratory Results - last 24 hr 05/28/19 05/28/19 05/28/19 Range/Units 10:50 10:50 16:03 WBC 5.11 (4.0-11.0) K/uL RBC 5.09 (4.50-5.90) M/uL Hgb 16.1 (13.0-17.0) g/dL Hct 47.0 (38.0-50.0) % MCV 92.3 (80.0-98.0) fL MCH 31.6 (27.0-32.0) pg MCHC 34.3 (31.0-37.0) g/dL RDW Std Deviation 41.5 (28.0-62.0) fl RDW Coeff of Nicky 12 (11.0-15.0) % Plt Count 199 (150-400) K/uL MPV 9.70 (7.40-12.00) fL Add Manual Diff YES Neutrophils % (Manual) 53 (48.0-80.0) % Band Neutrophils % 5 % Lymphocytes % (Manual) 38 (16.0-40.0) % Monocytes % (Manual) 2 (0.0-15.0) % Basophils % (Manual) 1 (0.0-1.5) % Metamyelocytes % 1 % Nucleated RBC % 0.0 /100WBC Absolute Seg Neuts 2.7 (1.4-5.7) Band Neutrophils # 0.3 Lymphocytes # (Manual) 1.9 (0.6-2.4) Monocytes # (Manual) 0.1 (0.0-0.8) Basophils # (Manual) 0.1 (0.0-0.1) Absolute Metamyelocyte 0.1 Nucleated RBCs # 0 K/uL Sodium 142 (136-148) mmol/L Potassium 4.2 (3.5-5.1) mmol/L Chloride 107 (98-107) mmol/L Carbon Dioxide 22.3 (21.0-32.0) mmol/L BUN 11 (7.0-18.0) mg/dL Creatinine 1.1 (0.8-1.3) mg/dL Est Cr Clr Drug Dosing 71.89 mL/min Estimated GFR (MDRD) > 60.0 ml/min Glucose 124 H (74-106) mg/dL Hemoglobin A1c (4.5-6.2) % Calcium 9.2 (8.5-10.1) mg/dL Total Bilirubin 0.6 (0.2-1.0) mg/dL AST 22 (15-37) IU/L ALT 34 (14-63) IU/L Alkaline Phosphatase 106 (46-116) U/L Troponin I < 0.050 < 0.050 (0.000-0.056) ng/mL Total Protein 7.4 (6.4-8.2) g/dL Albumin 3.9 (3.4-5.0) g/dL Globulin 3.5 (2.6-4.0) g/dL Albumin/Globulin Ratio 1.1 (0.9-1.6) Triglycerides (0-200) mg/dL Cholesterol (50-200) mg/dL LDL Cholesterol, Calc (60-180) mg/dL VLDL Cholesterol (5-55) mg/dL HDL Cholesterol (40-60) mg/dL Cholesterol/HDL Ratio (3.3-6.0) 05/28/19 05/29/19 05/29/19 Range/Units 22:09 06:35 06:35 WBC (4.0-11.0) K/uL RBC (4.50-5.90) M/uL Hgb (13.0-17.0) g/dL Hct (38.0-50.0) % MCV (80.0-98.0) fL MCH (27.0-32.0) pg MCHC (31.0-37.0) g/dL RDW Std Deviation (28.0-62.0) fl RDW Coeff of Nicky (11.0-15.0) % Plt Count (150-400) K/uL MPV (7.40-12.00) fL Add Manual Diff Neutrophils % (Manual) (48.0-80.0) % Band Neutrophils % % Lymphocytes % (Manual) (16.0-40.0) % Monocytes % (Manual) (0.0-15.0) % Basophils % (Manual) (0.0-1.5) % Metamyelocytes % % Nucleated RBC % /100WBC Absolute Seg Neuts (1.4-5.7) Band Neutrophils # Lymphocytes # (Manual) (0.6-2.4) Monocytes # (Manual) (0.0-0.8) Basophils # (Manual) (0.0-0.1) Absolute Metamyelocyte Nucleated RBCs # K/uL Sodium (136-148) mmol/L Potassium (3.5-5.1) mmol/L Chloride (98-107) mmol/L Carbon Dioxide (21.0-32.0) mmol/L BUN (7.0-18.0) mg/dL Creatinine (0.8-1.3) mg/dL Est Cr Clr Drug Dosing mL/min Estimated GFR (MDRD) ml/min Glucose (74-106) mg/dL Hemoglobin A1c 6.0 (4.5-6.2) % Calcium (8.5-10.1) mg/dL Total Bilirubin (0.2-1.0) mg/dL AST (15-37) IU/L ALT (14-63) IU/L Alkaline Phosphatase (46-116) U/L Troponin I < 0.050 (0.000-0.056) ng/mL Total Protein (6.4-8.2) g/dL Albumin (3.4-5.0) g/dL Globulin (2.6-4.0) g/dL Albumin/Globulin Ratio (0.9-1.6) Triglycerides 33 (0-200) mg/dL Cholesterol 120 (50-200) mg/dL LDL Cholesterol, Calc 37 L (60-180) mg/dL VLDL Cholesterol 6 (5-55) mg/dL HDL Cholesterol 76 H (40-60) mg/dL Cholesterol/HDL Ratio 1.6 L (3.3-6.0) Med Orders - Current: Current Medications Acetaminophen (Tylenol) 650 mg PO Q4H PRN PRN Reason: Pain (mild 1-3) Albuterol/Ipratropium (Duoneb 3.0-0.5 Mg/3 Ml) 3 ml NEB Q4HRRT PRN PRN Reason: Shortness Of Breath/wheezing Diphenhydramine HCl (Benadryl) 25 mg IVPUSH Q6H PRN PRN Reason: itching,anaphylaxis,allergic Last Admin: 05/28/19 21:49 Dose: 25 mg Fluticasone Propionate (Flonase) 0 gm NASBOTH DAILY [facility] Last Admin: 05/28/19 16:34 Dose: 1 spray Loratadine (Claritin) 10 mg PO DAILY [facility] Last Admin: 05/28/19 15:10 Dose: 10 mg Losartan Potassium (Cozaar) 100 mg PO DAILY [facility] Methylprednisolone Sodium Succinate (Solu-Medrol) 80 mg IVPUSH Q8H [facility] Last Admin: 05/29/19 06:20 Dose: 80 mg Ondansetron HCl (Zofran) 4 mg IVPUSH Q4H PRN PRN Reason: Nausea Desvenlafaxine (Succinate Er 100mg) 1 each PO DAILY [facility] Pravastatin Sodium [ Pravastatin Sodium] 10 Mg 1 each PO BEDTIME [facility] Last Admin: 05/28/19 21:48 Dose: Not Given Sodium Chloride (Saline Flush) 10 ml FLUSH ASDIRECTED PRN PRN Reason: Keep Vein Open Sodium Chloride (Saline Flush) 2.5 ml FLUSH ASDIRECTED PRN PRN Reason: Keep Vein Open Discontinued Medications Aspirin (Aspirin) 325 mg PO ONETIME ONE Stop: 05/28/19 12:41 Last Admin: 05/28/19 13:42 Dose: 325 mg Diphenhydramine HCl (Benadryl) 25 mg IVPUSH ONETIME ONE Stop: 05/28/19 10:41 Last Admin: 05/28/19 11:02 Dose: 25 mg Famotidine (Pepcid) 20 mg IVPUSH ONETIME ONE Stop: 05/28/19 10:41 Last Admin: 05/28/19 11:23 Dose: 20 mg Sodium Chloride (Normal Saline) 1,000 mls @ 999 mls/hr IV STAT ONE Stop: 05/28/19 11:41 Last Admin: 05/28/19 11:00 Dose: 999 mls/hr Methylprednisolone Sodium Succinate (Solu-Medrol) 125 mg IVPUSH ONETIME ONE Stop: 05/28/19 10:41 Last Admin: 05/28/19 11:04 Dose: 125 mg Nitroglycerin (Nitro-Bid 2%) 0.5 gm TOP ONETIME ONE Stop: 05/28/19 11:13 Last Admin: 05/28/19 11:23 Dose: Not Given Nitroglycerin (Nitro-Bid 2%) 1 gm TOP ONETIME ONE Stop: 05/28/19 11:19 Last Admin: 05/28/19 11:23 Dose: 1 gm Ticagrelor [Brilinta (] 60 Mg) 1 each PO DAILY [facility] Ticagrelor [Brilinta (] 60 Mg) 1 each PO DAILY SOL - Exam Quality Assessment: Denies: Supplemental Oxygen General: Reports: Alert, Oriented, Cooperative, No Acute Distress HEENT: Reports: Pupils Equal, Pupils Reactive, EOMI, Mucous Membr. Moist/[place] Neck: Reports: Supple, Trachea Midline Lungs: Reports: Clear to Auscultation, Normal Respiratory Effort Cardiovascular: Reports: Regular Rate, Regular Rhythm GI/Abdominal Exam: Normal Bowel Sounds, Soft, Non-Tender, No Distention Back Exam: Reports: Normal Inspection, Full Range of Motion Extremities: Normal Inspection, Normal Range of Motion, No Pedal Edema Skin: Reports: Warm, Dry, Intact Neurological: Reports: No New Focal Deficit, Normal Gait Psy/Mental Status: Reports: Alert, Normal Affect, Normal Mood
[2019-05-29] MEDS: Loratadine 10 MG Tab PO SCH (08:27)
[2019-05-29] MEDS: Fluticasone Propionate Nasal Spray 16 GM Bottle NASBOTH SCH (08:27)
[2019-05-29] MEDS ORDERED: Losartan 50 MG Tab PO SCH (09:00)
[2019-05-29] MEDS ORDERED: Ticagrelor [Brilinta] 60 MG PO SCH ×2 (09:00)
== END 2019-05-29 09:10 | disposition home or self-care (01) ==
LOC: MW.ED 10:39 → MW.MS 12:15
PROVIDERS: ADMIT Internal Medicine; ATTEND Internal Medicine
DX: R07.89 Other chest pain (principal); L29.9 Pruritus, unspecified; R23.2 Flushing; T38.0X5A Adverse effect of glucocorticoids and synthetic analogues, initial encounter; I10 Essential (primary) hypertension; I25.10 Atherosclerotic heart disease of native coronary artery without angina pectoris; I25.2 Old myocardial infarction; E78.00 Pure hypercholesterolemia, unspecified; F41.9 Anxiety disorder, unspecified; K21.9 Gastro-esophageal reflux disease without esophagitis; M17.0 Bilateral primary osteoarthritis of knee; Z88.8 Allergy status to other drugs, medicaments and biological substances; Z95.5 Presence of coronary angioplasty implant and graft; Z79.82 Long term (current) use of aspirin; Z79.899 Other long term (current) drug therapy
CPT/HCPCS: 36415; 71045; 80053; 80061; 83036; 84484; 85025; 93005; A9270; J1200; J2920; J2930; J7040; S0028; 96361; 96374; 96375; 96376; 99284-25; G0378; J3490

== ENCOUNTER 2020-08-10 06:55 | Day surgery (SDC) | payer BC ==
[~2020-08-10 06:55] MED LIST: Lactated Ringers 1,000 ML IV SCH
[2020-08-10] MEDS ORDERED: Propofol 200 MG/20 ML SDV ONE (07:09)
[2020-08-10] MEDS ORDERED: fentaNYL 100 MCG/2 ML SDV ONE (07:10)
--- NOTE | 2020-08-10 07:40 | PCM.PREANE ---
Preanesthetic Assessment - Anesthesia/Transfusion/Family Hx Anesthesia History: Prior Anesthesia Without Reaction Family History of Anesthesia Reaction: No Transfusion History: No Prior Transfusion(s) - Review of Systems General: No Symptoms Pulmonary: No Symptoms Cardiovascular: No Symptoms Neurological: No Symptoms Other: Reports: None - Physical Assessment NPO Status Date: 08/09/20 Vital Signs: Last Vital Signs Temp 97.3 F 08/10/20 07:05 Pulse 63 08/10/20 07:05 Resp 15 08/10/20 07:05 BP 149/95 H 08/10/20 07:05 Pulse Ox 96 08/10/20 07:05 Height: 5 ft 10 in Weight: 95.254 kg ASA Class: 3 Mental Status: Alert & Oriented x3 Airway Class: Mallampati = 2 Dentition: Reports: Normal Dentition ROM/Head Extension: Full Lungs: Clear to Auscultation, Normal Respiratory Effort Cardiovascular: Regular Rate, Regular Rhythm - Allergies Allergies/Adverse Reactions: Allergies Allergy/AdvReac Type Severity Reaction Status Date / Time atorvastatin calcium Allergy Other Verified 08/08/20 08:35 [From Lipitor] ezetimibe [From Zetia] Allergy Other Verified 08/08/20 08:35 lidocaine Allergy Airway Verified 08/08/20 08:35 Tightness bupivicaine Allergy Shortness Uncoded 08/08/20 08:35 of Breath depo medrol Allergy Facial Uncoded 08/08/20 08:36 Swelling - Blood Blood Available: No - Anesthesia Plan Pre-Op Medication Ordered: None - Acknowledgements Anesthesia Type Planned: General Anesthesia Pt an Appropriate Candidate for the Planned Anesthesia: Yes Alternatives and Risks of Anesthesia Discussed w Pt/Guardian: Yes Pt/Guardian Understands and Agrees with Anesthesia Plan: Yes Additional Comments: PMH: CAD, s/p AMI in 2019 with placement of 2 stents, htn, anxiety PLAN: tiva PreAnesthesia Questionnaire HEENT History: Reports: Impaired Vision Other HEENT History: states wears glasses for reading Cardiovascular History: Reports: CAD, High Cholesterol, Hypertension, [place], Stents Respiratory History: Reports: None Gastrointestinal History: Reports: GERD Genitourinary History: Reports: None Musculoskeletal History: Reports: Arthritis, Fracture Other Musculoskeletal History: chipped right knee cap, had right hand fracture in the past Neurological History: Reports: None Psychiatric History: Reports: Anxiety Endocrine/Metabolic History: Reports: None Hematologic History: Reports: None Immunologic History: Reports: None Oncologic (Cancer) History: Reports: None Dermatologic History: Reports: None - Infectious Disease History Infectious Disease History: Reports: Chicken Pox, Hepatitis A, Measles Other Infectious Disease History: when a child - Past Surgical History Head Surgeries/Procedures: Reports: None HEENT Surgical History: Reports: Oral Surgery Other HEENT Surgeries/Procedures: has dental implants GI Surgical History: Reports: Colonoscopy Male Surgical History: Reports: Vasectomy Musculoskeletal Surgical History: Reports: Arthroscopic Knee - SUBSTANCE USE Tobacco Use Status *Q: Never Tobacco User - HOME MEDS Home Medications: Home Meds Desvenlafaxine Succinate [Desvenlafaxine Succinate ER] 100 mg PO DAILY 03/26/19 [History] Losartan Potassium 0.5 tab PO BID 03/26/19 [History] ALPRAZolam [Alprazolam] 0.5 - 1 mg PO DAILY PRN 05/28/19 [History] Aspirin 81 mg PO DAILY 05/28/19 [History] Diclofenac Sodium [Voltaren] 50 mg PO DAILY 05/28/19 [History] Multivit with Iron,Minerals [Spectravite Senior] 1 tab PO DAILY 05/28/19 [History] Ticagrelor [Brilinta] 60 mg PO DAILY 05/28/19 [History] Vitamin B Complex [Ultra B-100 Complex] 100 mg PO DAILY 05/28/19 [History] Cholecalciferol (Vitamin D3) [Vitamin D3] 1 tab PO BID 08/08/20 [History] Flaxseed Oil [Flax Oil] 1 tab PO DAILY 08/08/20 [History] Nitroglycerin [Nitrostat] 1 tab SL ASDIRECTED PRN 08/08/20 [History] Psyllium [Metamucil] 1 tab PO DAILY 08/08/20 [History] Rosuvastatin Calcium 1 tab PO DAILY 08/08/20 [History] Turmeric Root Extract [Turmeric] 2 tab PO DAILY 08/08/20 [History] - CURRENT (IN HOUSE) MEDS Current Meds: Current Medications Lactated Ringer's (Ringers, Lactated) 1,000 mls @ 125 mls/hr IV ASDIRECTED SOL Last Admin: 08/10/20 07:28 Dose: 125 mls/hr Documented by: Discontinued Medications Fentanyl (Sublimaze) Confirm Administered Dose 100 mcg .ROUTE .STK-MED ONE Stop: 08/10/20 07:11 Propofol (Diprivan 20 Ml) Confirm Administered Dose 400 mg .ROUTE .STK-MED ONE Stop: 08/10/20 07:10
[2020-08-10] MEDS ORDERED: Glycopyrrolate 0.2 MG/ML SDV ONE (08:25)
--- NOTE | 2020-08-10 08:49 | PCM.OPNOTE ---
- General Post-Op/Procedure Note Date of Surgery/Procedure: 08/10/20 Operative Procedure(s): Colonoscopy with polypectomy Findings: Colon polyp at 30 cm Dictation Number [id number] Pre Op Diagnosis: Positive cologuard Post-Op Diagnosis: Colon polyp Primary Surgeon: Luis Garcia Complications: None Condition: Good
--- NOTE | 2020-08-10 09:06 | PCM.POSTAN ---
POST ANESTHESIA ASSESSMENT - MENTAL STATUS Mental Status: Alert, Oriented - VITAL SIGNS Vital Signs: Last Vital Signs Temp 97.3 F 08/10/20 07:05 Pulse 81 08/10/20 09:00 Resp 12 08/10/20 09:00 BP 114/75 08/10/20 09:00 Pulse Ox 94 L 08/10/20 09:00 - RESPIRATORY Respiratory Status: Respiratory Rate WNL, Airway Patent, O2 Saturation Stable - CARDIOVASCULAR CV Status: Pulse Rate WNL, Blood Pressure Stable - GASTROINTESTINAL GI Status: No Symptoms - PAIN Pain Score: 0 - POST OP HYDRATION Hydration Status: Adequate & Stable
--- NOTE | 2020-08-10 09:23 | PCM48HPAN ---
Post Anesthesia Note - EVALUATION WITHIN 48HRS OF ANESTHETIC Vital Signs in Normal Range: Yes Patient Participated in Evaluation: Yes Respiratory Function Stable: Yes Airway Patent: Yes Cardiovascular Function Stable: Yes Hydration Status Stable: Yes Pain Control Satisfactory: Yes Nausea and Vomiting Control Satisfactory: Yes Mental Status Recovered: Yes Vital Signs: Last Vital Signs Temp 97.9 F 08/10/20 09:05 Pulse 78 08/10/20 09:05 Resp 14 08/10/20 09:05 BP 129/73 08/10/20 09:05 Pulse Ox 95 08/10/20 09:05
--- NOTE | 2020-08-10 10:32 | OR ---
SURGEON: LINDA ROA MD DATE OF PROCEDURE: 08/10/2020 PREOPERATIVE DIAGNOSIS: Positive Cologuard. POSTOPERATIVE DIAGNOSIS: Small polyp, possibly hyperplastic, at 30 cm. PROCEDURE PERFORMED: Colonoscopy with polypectomy and cold biopsy polypectomy. PRIMARY SURGEON: Linda Roa MD ANESTHESIA: With anesthesiologist. EXTENT OF COLONOSCOPY: To the cecum. WITHDRAWAL TIME: 12 minutes. LIMITATIONS: None. BOWEL PREP: Very good. REASON FOR PROCEDURE: The patient is a pleasant 65-year-old gentleman whose last colonoscopy was 10 years ago. He said this was normal. The patient denies any blood in the stool. He does have issues of loose stools. This is controlled with Metamucil. He does have a history of colon cancer. He did have a recent Cologuard that was positive. PROCEDURE IN DETAIL: Physical examination was performed. The major risks and benefits associated with the procedure were explained to the patient in detail. The patient verbalized understanding of the same. The patient was then connected to the appropriate monitoring devices and IV started. EKG, pulse, pulse oximetry, blood pressure, and capnography were monitored throughout the procedure, and his oxygen and sedation were provided by the anesthesiologist. The patient was placed in left lateral decubitus position. Sedation began. After adequate sedation was achieved, digital rectal exam was performed. No rectal masses or polyps were felt. Now, a well-lubricated Olympus colonoscope was entered into the rectum and advanced under direct visualization to the level of the cecum. The cecum was identified by both visual and anatomic landmarks. A photograph was taken of the cecal cap. The scope was then slowly withdrawn in a semicircular fashion, looking at the color, texture, anatomy, and integrity of the mucosa from the cecum to the anal canal. The patient had a very good bowel prep. There was some light liquid stool. This was suctioned and irrigated out for a very good look at the mucosa. The patient had a small polyp, possibly hyperplastic, at about 30 cm, removed with cold biopsy polypectomy. The scope was retroflexed in the rectum. The scope was then completely removed, and the procedure was terminated. ENDOSCOPIC DIAGNOSIS: Polyp at 30 cm. RECOMMENDATIONS: Followup colonoscopy will depend on pathology, but most likely another one in 5 years, sooner if he develops signs or symptoms such as change in bowel habits or blood in stool. EZEQUIEL / DESMOND /[id number]
== END 2020-08-10 09:30 | disposition home or self-care (01) ==
LOC: MW.SDS 06:55
PROVIDERS: ATTEND Surgery
DX: K63.5 Polyp of colon (principal); F41.9 Anxiety disorder, unspecified; I10 Essential (primary) hypertension; E78.00 Pure hypercholesterolemia, unspecified; I25.10 Atherosclerotic heart disease of native coronary artery without angina pectoris; I25.2 Old myocardial infarction; Z95.5 Presence of coronary angioplasty implant and graft; Z88.8 Allergy status to other drugs, medicaments and biological substances; Z79.899 Other long term (current) drug therapy; Z79.82 Long term (current) use of aspirin; Z98.890 Other specified postprocedural states
CPT/HCPCS: 45380; 88305; J2704; J3010; J3490; J7120; 00811

== ENCOUNTER 2021-09-17 14:39 | Emergency (ER) | payer MEDICARE, OTHER ==
[2021-09-17] MEDS ORDERED: Morphine 4 MG/ML VIAL IVPUSH ONE (14:52)
[2021-09-17] MEDS ORDERED: Ondansetron 4 MG/2 ML SDV IVPUSH ONE (14:52)
[2021-09-17 15:32] LABS: BLOOD UREA NITROGEN,BUN 11 mg/dL (7.0-18.0); CARBON DIOXIDE,CO2 24.1 mmol/L (21.0-32.0); CHLORIDE,CL 106 mmol/L (98-107); GLUCOSE RANDOM 135 mg/dL (74-106); POTASSIUM,K 3.7 mmol/L (3.5-5.1); SODIUM,NA 142 mmol/L (136-148)
[2021-09-17] MEDS ORDERED: Iopamidol 755 MG/ML 500 ML Multipack Bottle IVPUSH STA (16:44)
[2021-09-17] MEDS ORDERED: Heparin Sodium 5,000 Units/ML Vial IVPUSH ONE (18:33)
[2021-09-17] MEDS ORDERED: Heparin Sodium/0.45% NaCl 500 ML IV SCH (18:45)
== END 2021-09-17 20:05 ==
LOC: MW.ED 14:39
DX: I21.4 Non-ST elevation (NSTEMI) myocardial infarction (principal); I25.10 Atherosclerotic heart disease of native coronary artery without angina pectoris; E78.00 Pure hypercholesterolemia, unspecified; I10 Essential (primary) hypertension; I25.2 Old myocardial infarction; Z95.5 Presence of coronary angioplasty implant and graft; Z88.8 Allergy status to other drugs, medicaments and biological substances; Z88.4 Allergy status to anesthetic agent; Z79.82 Long term (current) use of aspirin; Z79.899 Other long term (current) drug therapy
CPT/HCPCS: 36415; 71045; 71275; 80053; 83735; 83880; 84484; 85025; 85379; 85610; 85730; 86140; 93005; 96365; 96375; 99285; J1644; J2270; J2405; Q9967

== ENCOUNTER 2021-12-12 12:08 | Day surgery (SDC) | payer MEDICARE, OTHER ==
[~2021-12-12 12:08] MED LIST changes: +Midazolam 1 MG/ML 2 ML SDV ONE; +Propofol 200 MG/20 ML SDV ONE
[2021-12-12] MEDS ORDERED: fentaNYL 100 MCG/2 ML SDV ONE (14:19)
== END 2021-12-12 15:16 | disposition home or self-care (01) ==
LOC: MW.SDS 12:08
PROVIDERS: ATTEND Surgery
DX: K21.00 Gastro-esophageal reflux disease with esophagitis, without bleeding (principal); K31.7 Polyp of stomach and duodenum; K29.70 Gastritis, unspecified, without bleeding; K22.2 Esophageal obstruction; K44.9 Diaphragmatic hernia without obstruction or gangrene; I10 Essential (primary) hypertension; E78.00 Pure hypercholesterolemia, unspecified; I25.2 Old myocardial infarction; F41.9 Anxiety disorder, unspecified; I25.10 Atherosclerotic heart disease of native coronary artery without angina pectoris; Z95.5 Presence of coronary angioplasty implant and graft; Z98.890 Other specified postprocedural states; Z88.4 Allergy status to anesthetic agent; Z88.8 Allergy status to other drugs, medicaments and biological substances; Z79.82 Long term (current) use of aspirin; Z79.899 Other long term (current) drug therapy
CPT/HCPCS: 43239; J2704; J3010; J7120; 00731; 88305; J2250

== ENCOUNTER 2025-01-21 08:25 | Day surgery (SDC) | payer MEDICARE, OTHER ==
[2025-01-21] MEDS: Lactated Ringers 1,000 ML IV SCH (08:59)
[2025-01-21] MEDS ORDERED: propofoL 500 MG/50 ML 50 ML ONE (12:21)
[2025-01-21] MEDS ORDERED: Sodium Chloride 0.9% 20 ML ONE (12:22)
[2025-01-21] MEDS ORDERED: dexmedeTOMIDine HCl 200 MCG/2 ML SDV ONE (12:22)
[2025-01-21] MEDS ORDERED: Glycopyrrolate 0.2 MG/ML SDV ONE (12:48)
== END 2025-01-21 13:50 | disposition home or self-care (01) ==
LOC: MW.SDS 08:25
PROVIDERS: ATTEND Surgery
DX: K31.7 Polyp of stomach and duodenum (principal); K21.00 Gastro-esophageal reflux disease with esophagitis, without bleeding; K44.9 Diaphragmatic hernia without obstruction or gangrene; K22.2 Esophageal obstruction; I25.10 Atherosclerotic heart disease of native coronary artery without angina pectoris; E11.9 Type 2 diabetes mellitus without complications; I11.0 Hypertensive heart disease with heart failure; I50.9 Heart failure, unspecified; Z95.5 Presence of coronary angioplasty implant and graft; Z88.8 Allergy status to other drugs, medicaments and biological substances; Z79.82 Long term (current) use of aspirin; Z79.84 Long term (current) use of oral hypoglycemic drugs; Z79.899 Other long term (current) drug therapy
CPT/HCPCS: 00731; 88305; J1596; J2704; J7120